=== PATIENT | female | born 1975 | race Caucasian/White ===

== ENCOUNTER → 2016-12-01 | Outpatient (CLI) | payer OTHER ==
[2016-12-01 09:51] LABS: ABSOLUTE BASOPHILS # (AUTO) 0.1 10^3/uL (0.0-0.2); ABSOLUTE EOSINOPHILS # (AUTO) 0.3 10^3/uL (0.0-0.6); ABSOLUTE LYMPHOCYTES (AUTO) 1.8 10^3/uL (0.5-4.7); ABSOLUTE MONOCYTES (AUTO) 0.5 10^3/uL (0.1-1.4); ABSOLUTE NEUT (AUTO) 3.6 10^3/uL (1.7-8.2); BASOPHILS % (AUTO) 0.8 % (0-2); EOSINOPHILS % (AUTO) 4.3 % (0-6); HEMOGLOBIN 13.5 g/dL (12.0-15.5); HGB HCT DIFFERENCE 0.5; LYMPHOCYTES % (AUTO) 28.4 % (13-45); MEAN CORPUSCULAR HEMOGLOBIN 30.6 pg (27.0-33.4); MEAN CORPUSCULAR HGB CONC 33.7 g/dL (32.0-36.0); MEAN CORPUSCULAR VOLUME 91 fl (80-97); MONOCYTES % (AUTO) 7.4 % (3-13); RED CELL DISTRIBUTION WIDTH 15.2 % (11.5-14.0); SEGMENTED NEUTROPHILS % (AUTO) 59.1 % (42-78); WHITE BLOOD COUNT 6.2 10^3/uL (4.0-10.5)
[2016-12-01 10:16] LABS: ALANINE AMINOTRANSFERASE 52 U/L (9-52); ALBUMIN 4.1 g/dL (3.5-5.0); ALKALINE PHOSPHATASE 70 U/L (38-126); ANION GAP 12 (5-19); ASPARTATE AMINO TRANSFERASE 38 U/L (14-36); BILIRUBIN,TOTAL 0.7 mg/dL (0.2-1.3); BLOOD UREA NITROGEN 12 mg/dL (7-20); CALCIUM 9.4 mg/dL (8.4-10.2); CARBON DIOXIDE 25 mmol/L (22-30); CHLORIDE 104 mmol/L (98-107); CHOLESTEROL 247.28 mg/dL (0-200); CREATININE RESULT 0.76 mg/dL (0.52-1.25); GLUCOSE 82 mg/dL (75-110); POTASSIUM 4.4 mmol/L (3.6-5.0); SODIUM 140.9 mmol/L (137-145); TRIGLYCERIDES 65 mg/dL (<150)
[2016-12-01 10:26] LABS: DIRECT LDL 119 mg/dL (<100)
[2016-12-01 10:30] LABS: Direct HDL 120 mg/dL (>40)
[2016-12-02 09:48] LABS: HEPATITIS C VIRUS AB >11.0 s/co ratio (0.0-0.9)
== END ==
LOC: CCC 08:53
DX: Z00.00 Encounter for general adult medical examination without abnormal findings (principal); R06.02 Shortness of breath; Z86.19 Personal history of other infectious and parasitic diseases
CPT/HCPCS: 36415; 71020; 80053; 80061; 83036; 84443; 85025; 86803; 86804

== ENCOUNTER → 2016-12-08 | Outpatient (CLI) | payer OTHER ==
[2016-12-10 22:36] LABS: HEPATITIS C GENOTYPE 3 1a (.)
== END ==
LOC: CCC 10:37
DX: B18.8 Other chronic viral hepatitis (principal)
CPT/HCPCS: 36415; 81270

== ENCOUNTER 2020-01-01 15:32 | Emergency (ER) | payer SELFPAY ==
[2020-01-01 15:53] VITALS: BP 130/52
--- NOTE | 2020-01-01 17:17 | ER Document Report ---
ED Substance Abuse / Acc. OD - General Chief Complaint: ETOH Abuse Stated Complaint: ETOH Time Seen by Provider: 01/01/20 16:53 [facility] - Follow up as needed Notes: Pt eloped from the ED literally moments before I arrived in the room. She was ambulating independently. No complaints. TRAVEL OUTSIDE OF THE [place] IN LAST 30 DAYS: No - HPI Patient complains to provider of: Other - Law enforcement called EMS. Onset: Just prior to arrival - Related Data Allergies/Adverse Reactions: No Known Allergies Allergy (Verified 09/25/16 11:49) Past Medical History - Social History Smoking Status: Current Every Day Smoker Frequency of alcohol use: Heavy Drug Abuse: Heroin, Other Family History: Reviewed & Not Pertinent Patient has suicidal ideation: No Patient has homicidal ideation: No Traumatic Medical History: Reports: Hx Fractures Past Surgical History: Reports: Hx Section - Immunizations Hx Diphtheria, Pertussis, Tetanus Vaccination: Yes Review of Systems - Review of Systems -: Yes ROS unobtainable due to patient's medical condition Physical Exam - Vital signs Vitals: Temp Pulse Resp BP Pulse Ox 98.8 F 112 H 20 130/52 H 99 01/01/20 15:52 01/01/20 15:52 01/01/20 15:52 01/01/20 15:52 01/01/20 15:52 - General General appearance: Alert Course - Re-evaluation Re-evalutation: 01/01/20 17:15 MDM 44 year old arrives via EMS. I am unable to see here or perform exam before she tells nursing staff she is leaving. Ambulates to lobby and leaves without incident. - Vital Signs Vital signs: Temp Pulse Resp BP Pulse Ox 98.8 F 112 H 20 130/52 H 99 01/01/20 15:52 01/01/20 15:52 01/01/20 15:52 01/01/20 15:52 01/01/20 15:52 Discharge - Discharge Clinical Impression: Alcohol use Condition: Fair Disposition: ELOPED Instructions: Stop Smoking ([facility]) Additional Instructions: Return here for any problems or any concerns. [facility]errals: [facility] [Primary Care Provider] - Follow up as needed
== END 2020-01-01 17:16 | disposition left against medical advice (07) ==
LOC: ER 15:32
DX: F10.10 Alcohol abuse, uncomplicated (principal); F17.200 Nicotine dependence, unspecified, uncomplicated